=== PATIENT | male | born 1990 | race Caucasian/White ===

== ENCOUNTER 2017-06-17 16:39 | Emergency (ER) | payer SELFPAY ==
[~2017-06-17] VITALS: Ht 157.5 cm; Wt 71.0 kg
[2017-06-17 16:40] VITALS: BP 122/65; PULSE 100; RESP 20; TEMP 99.1; O2SAT 97
[2017-06-17 19:13] VITALS: BP 165/86; PULSE 61; RESP 18; O2SAT 100
--- NOTE | 2017-06-17 19:36 | PD ---
HPI Chief Complaint: Abdominal Pain Time Seen by Provider: 19:26 Travel History International Travel<30 days: No Contact w/Intl Traveler<30days: No Traveled to known affect area: No History of Present Illness HPI 26-year-old black male presents from her department by EMS with complaints of upper abdominal pain since this afternoon around noon. 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 He had a bolus cereal before going to bed. He states he had woken up around noon with pain in his upper abdomen more on the right side. He denies any nausea vomiting. No fever chills. No urinary symptoms. He states the pain is worse when he takes a deep breath. There is no alleviating factors. He states the pain is a 6/10. Its dull but can be sharp at times. Denies any other medical complaints. PFSH Past Medical History Medical History: Denies Significant Hx Diabetes: No Patient Takes Glucophage: No Diminished Hearing: No Immunizations Current: Yes Tetanus Vaccination: < 5 Years Influenza Vaccination: Yes Past Surgical History Surgical History: No Previous Surgery Social History Alcohol Use: No Tobacco Use: No Substance Use: No Allergies-Medications (Allergen,Severity, Reaction): Coded Allergies: No Known Allergies (Unverified , 06/17/17) Reported Meds & Prescriptions Reported Meds & Active Scripts Active Levsin-SL (Hyoscyamine Sulfate) 0.125 Mg Subl 0.125 Mg SL Q4H Zofran Odt (Ondansetron Odt) 4 Mg Tab 4 Mg SL ONCE Review of Systems Except as stated in HPI: all other systems reviewed are Neg General / Constitutional: No: Fever Eyes: No: Visual changes HENT: No: Headaches Cardiovascular: No: Chest Pain or Discomfort Respiratory: No: Shortness of Breath Gastrointestinal: Positive: Abdominal Pain, No: Nausea, Vomiting, Diarrhea Genitourinary: No: Dysuria, Nocturia Musculoskeletal: No: Pain Skin: No Rash Neurologic: No: Weakness Psychiatric: No: Depression Endocrine: No: Polydipsia Hematologic/Lymphatic: No: Easy Bruising Physical Exam Narrative GENERAL: Well-developed, well-nourished in no acute distress. Nontoxic appearing. HEAD: Normocephalic, atraumatic. EYES: Pupils equal round and reactive. Extraocular motions intact. No scleral icterus. No injection or drainage. ENT: TMs clear without erythema. The external auditory canals clear. Nose: clear . Posterior pharynx is pink and moist. No tonsillar edema or exudate. Uvula midline. Airway patent. NECK: Trachea midline.Supple, nontender, moves head freely. No central bony tenderness or spasm. CARDIOVASCULAR: Regular rate and rhythm without murmurs, gallops, or rubs. RESPIRATORY: Clear to auscultation. Breath sounds equal bilaterally. No wheezes , rales, or rhonchi. GASTROINTESTINAL: Abdomen soft, minimal tenderness to the right upper quadrant with deep palpation, nondistended. No hepato-splenomegaly, or palpable masses. No guarding. No rebound. No Monroy sign. EXTREMITIES: No clubbing, cyanosis, or edema. No joint tenderness, effusion, or edema noted. BACK: Nontender without deformity or crepitance. No flank tenderness. Data Data Last Documented VS Vital Signs Date Time Temp Pulse Resp B/P (MAP) Pulse Ox O2 Delivery O2 Flow Rate FiO2 06/17/17 19:13 61 18 165/86 (112) 100 Room Air 06/17/17 16:40 99.1 Orders Orders Complete Blood Count With Diff (06/17/17 19:31) Comprehensive Metabolic Panel (06/17/17 19:31) C-Reactive Protein (Crp) (06/17/17 19:31) Lipase (06/17/17 19:31) Urinalysis - C+S If Indicated (06/17/17 19:31) Iv Access Insert/Monitor (06/17/17 19:31) Sodium Chlor 0.9% 1000 Ml Inj (Ns 1000 M (06/17/17 19:45) Metoclopramide Inj (Reglan Inj) (06/17/17 19:45) Diphenhydramine Inj (Benadryl Inj) (06/17/17 19:45) Hyoscyamine (Levsin) (06/17/17 19:45) Ed Discharge Order (06/17/17 21:09) Labs Laboratory Tests Test 06/17/17 19:35 06/17/17 20:35 White Blood Count 8.1 TH/MM3 Red Blood Count 4.39 MIL/MM3 Hemoglobin 13.0 GM/DL Hematocrit 38.4 % Mean Corpuscular Volume 87.3 FL Mean Corpuscular Hemoglobin 29.5 PG Mean Corpuscular Hemoglobin Concent 33.8 % Red Cell Distribution Width 13.6 % Platelet Count 283 TH/MM3 Mean Platelet Volume 8.1 FL Neutrophils (%) (Auto) 82.1 % Lymphocytes (%) (Auto) 11.4 % Monocytes (%) (Auto) 6.0 % Eosinophils (%) (Auto) 0.2 % Basophils (%) (Auto) 0.3 % Neutrophils # (Auto) 6.7 TH/MM3 Lymphocytes # (Auto) 0.9 TH/MM3 Monocytes # (Auto) 0.5 TH/MM3 Eosinophils # (Auto) 0.0 TH/MM3 Basophils # (Auto) 0.0 TH/MM3 CBC Comment DIFF FINAL Differential Comment Blood Urea Nitrogen 6 MG/DL Creatinine 0.80 MG/DL Random Glucose 97 MG/DL Total Protein 7.5 GM/DL Albumin 4.0 GM/DL Calcium Level 8.7 MG/DL Alkaline Phosphatase 47 U/L Aspartate Amino Transf (AST/SGOT) 18 U/L Alanine Aminotransferase (ALT/SGPT) 26 U/L Total Bilirubin 0.6 MG/DL Sodium Level 138 MEQ/L Potassium Level 3.8 MEQ/L Chloride Level 105 MEQ/L Carbon Dioxide Level 28.3 MEQ/L Anion Gap 5 MEQ/L Estimat Glomerular Filtration Rate 116 ML/MIN C-Reactive Protein LESS THAN 0.29 MG/DL Lipase 88 U/L Urine Color LIGHT-YELLOW Urine Turbidity CLEAR Urine pH 6.5 Urine Specific [place] 1.007 Urine Protein NEG mg/dL Urine Glucose (UA) NEG mg/dL Urine Ketones NEG mg/dL Urine Occult Blood NEG Urine Nitrite NEG Urine Bilirubin NEG Urine Urobilinogen LESS THAN 2.0 MG/DL Urine Leukocyte Esterase NEG Urine WBC LESS THAN 1 /hpf Urine Squamous Epithelial Cells <1 /hpf Microscopic Urinalysis Comment CULT NOT INDICATED MDM Medical Decision Making Medical Screen Exam Complete: Yes Emergency Medical Condition: Yes Medical Record Reviewed: Yes Interpretation(s) Laboratory Tests Test 06/17/17 19:35 06/17/17 20:35 White Blood Count 8.1 TH/MM3 Red Blood Count 4.39 MIL/MM3 Hemoglobin 13.0 GM/DL Hematocrit 38.4 % Mean Corpuscular Volume 87.3 FL Mean Corpuscular Hemoglobin 29.5 PG Mean Corpuscular Hemoglobin Concent 33.8 % Red Cell Distribution Width 13.6 % Platelet Count 283 TH/MM3 Mean Platelet Volume 8.1 FL Neutrophils (%) (Auto) 82.1 % Lymphocytes (%) (Auto) 11.4 % Monocytes (%) (Auto) 6.0 % Eosinophils (%) (Auto) 0.2 % Basophils (%) (Auto) 0.3 % Neutrophils # (Auto) 6.7 TH/MM3 Lymphocytes # (Auto) 0.9 TH/MM3 Monocytes # (Auto) 0.5 TH/MM3 Eosinophils # (Auto) 0.0 TH/MM3 Basophils # (Auto) 0.0 TH/MM3 CBC Comment DIFF FINAL Differential Comment Blood Urea Nitrogen 6 MG/DL Creatinine 0.80 MG/DL Random Glucose 97 MG/DL Total Protein 7.5 GM/DL Albumin 4.0 GM/DL Calcium Level 8.7 MG/DL Alkaline Phosphatase 47 U/L Aspartate Amino Transf (AST/SGOT) 18 U/L Alanine Aminotransferase (ALT/SGPT) 26 U/L Total Bilirubin 0.6 MG/DL Sodium Level 138 MEQ/L Potassium Level 3.8 MEQ/L Chloride Level 105 MEQ/L Carbon Dioxide Level 28.3 MEQ/L Anion Gap 5 MEQ/L Estimat Glomerular Filtration Rate 116 ML/MIN C-Reactive Protein LESS THAN 0.29 MG/DL Lipase 88 U/L Urine Color LIGHT-YELLOW Urine Turbidity CLEAR Urine pH 6.5 Urine Specific [place] 1.007 Urine Protein NEG mg/dL Urine Glucose (UA) NEG mg/dL Urine Ketones NEG mg/dL Urine Occult Blood NEG Urine Nitrite NEG Urine Bilirubin NEG Urine Urobilinogen LESS THAN 2.0 MG/DL Urine Leukocyte Esterase NEG Urine WBC LESS THAN 1 /hpf Urine Squamous Epithelial Cells <1 /hpf Microscopic Urinalysis Comment CULT NOT INDICATED Differential Diagnosis MDM: High Differential diagnoses: Ruptured viscous, acute pancreatitis, diverticulitis, hepatitis, colitis, ischemic bowel, bowel instruction, nonspecific abdominal pain, gastroparesis, electrolyte abnormality, cholelithiasis, dehydration, drug- seeking, malingering Narrative Course IV access is obtained. Patient given a liter bolus of normal slightly, Benadryl 50 mg IV, Reglan 10 mg IV, 2 Levsin sublingual. Routine laboratory tests for analysis. Patient has resolution of his pain. He is taking by mouth without problems. The patient is medically stable for discharge his laboratory evaluations are unremarkable. Repeat exam is normal. This is abdominal pain-resolved Diagnosis Primary Impression: abdominal pain-resolved Patient Instructions: General Instructions Additional Instructions: Rest. Increase fluids. Zofran for nausea. Levsin for abdominal cramping. Follow-up with a primary care doctor in the next 2-3 days or return to the ER if any worsening or problems develop. Med/Other Pt SpecificInfo: Prescription(s) given Scripts Hyoscyamine Odt (Levsin-SL) 0.125 Mg Subl 0.125 MG SL Q4H for Gastrointestinal disorders, #10 TAB.SL 0 Refills Prov: Christiano Doyle MD 06/17/17 Ondansetron Odt (Zofran Odt) 4 Mg Tab 4 MG SL ONCE for Nausea/Vomiting, #3 TAB 0 Refills Prov: Christiano Doyle MD 06/17/17 Disposition: 01 DISCHARGE HOME Condition: Stable Ric Sousa Jun 17, 2017 19:36
[2017-06-17] MEDS ORDERED: HYOSCYAMINE 0.125 MG TAB PO ONE (19:45)
[2017-06-17] MEDS ORDERED: METOCLOPRAMIDE HCL 10 MG/2 ML VIAL IV PUSH ONE (19:45)
[2017-06-17] MEDS ORDERED: diphenhydrAMINE HCL 50 MG/ML VIAL IV PUSH ONE (19:45)
[2017-06-17] MEDS ORDERED: SODIUM CHLOR 0.9% 1000 ML INJ 1,000 ML IV ONE (19:45)
[2017-06-17 20:24] LABS: ANION GAP 5 MEQ/L (5-15); AST (GOT) 18 U/L (15-37); BICARBONATE 28.3 MEQ/L (21.0-32.0); BLOOD UREA NITROGEN 6 MG/DL (7-18); CHLORIDE 105 MEQ/L (98-107); GLOMERULAR FILTRATION RATE 116 ML/MIN (>89); POTASSIUM 3.8 MEQ/L (3.5-5.1); SODIUM (NA) 138 MEQ/L (136-145)
[2017-06-17 20:25] LABS: ALT (GPT) 26 U/L (12-78)
[2017-06-17 20:27] LABS: ALKALINE PHOSPHATASE 47 U/L (45-117); TOTAL BILIRUBIN ADULT 0.6 MG/DL (0.2-1.0)
[2017-06-17 20:32] LABS: AUTOMATED NEUTROPHIL # 6.7 TH/MM3 (1.8-7.7); BASOPHIL % 0.3 % (0.0-2.0); EOSINOPHIL % 0.2 % (0.0-4.0); HEMATOCRIT 38.4 % (39.0-51.0); HEMO FLAGS DIFF FINAL; LYMPH % 11.4 % (9.0-44.0); LYMPHOCYTE # 0.9 TH/MM3 (1.0-4.8); MEAN CELL VOLUME 87.3 FL (80.0-100.0); MEAN CORPUSCULAR HEMOGLOBIN 29.5 PG (27.0-34.0); MEAN CORPUSCULAR HGB CONC 33.8 % (32.0-36.0); NEUT % 82.1 % (16.0-70.0); PLATELET COUNT 283 TH/MM3 (150-450); RED BLOOD COUNT 4.39 MIL/MM3 (4.50-5.90); RED CELL DISTRIBUTION WIDTH 13.6 % (11.6-17.2); WHITE BLOOD COUNT 8.1 TH/MM3 (4.0-11.0)
[2017-06-17 21:09] LABS: BLOOD, URINE NEG (NEG); COMMENT (UR) CULT NOT INDICATED; CULTURE IF INDICATED CULT NOT INDICATED; GLUCOSE,URINE NEG (NEG); KETONE, URINE NEG (NEG); NITRITE,URINE NEG (NEG); PH, URINE 6.5 (5.0-8.5); SQUAMOUS EPITHELIAL CELL URINE <1 /hpf (0-5); URINE COLOR LIGHT-YELLOW (YELLW/STRAW)
[2017-06-17] MEDS ORDERED: ZOFR4TAB3 SL (21:18)
[2017-06-17] MEDS ORDERED: LEVS0.124 SL (21:18)
== END 2017-06-17 21:41 | disposition home or self-care (01) ==
LOC: NEPD 16:39
DX: R10.10 Upper abdominal pain, unspecified (principal)
CPT/HCPCS: 80053; 81001; 83690; 85025; 86140; 96361; 96374; 96375; 99284; J1200; J2765; J7030

== ENCOUNTER 2017-08-19 00:42 | Emergency (ER) | payer SELFPAY ==
[~2017-08-19] VITALS: Ht 185.4 cm; Wt 120.0 kg
[~2017-08-19 00:42] MED LIST: LEVS0.124 SL; ZOFR4TAB3 SL
[2017-08-19 00:45] VITALS: BP 162/89; PULSE 63; RESP 20; TEMP 97.6; O2SAT 100
[2017-08-19 02:47] VITALS: BP 154/90; PULSE 61; RESP 18; O2SAT 100
[2017-08-19 03:25] LABS: BILIRUBIN, URINE NEG (NEG); BLOOD, URINE NEG (NEG); GLUCOSE,URINE NEG (NEG); KETONE, URINE NEG (NEG); MUCUS URINE FEW /lpf (OCC); NITRITE,URINE NEG (NEG); SQUAMOUS EPITHELIAL CELL URINE <1 /hpf (0-5); TRANSITIONAL EPI CELLS, URINE <1 /hpf; URINE COLOR YELLOW (YELLW/STRAW); URINE LEUKOCYTE ESTERASE NEG (NEG)
[2017-08-19] MEDS ORDERED: KETOROLAC TROMETHAMINE 60 MG/2 ML (IM) VIAL IM ONE (04:00)
--- NOTE | 2017-08-19 05:22 | PD ---
HPI Chief Complaint: Abdominal Pain Time Seen by Provider: 01:44 Travel History International Travel<30 days: No Contact w/Intl Traveler<30days: No Traveled to known affect area: No History of Present Illness HPI Patient 26-year-old male comes to the ER complaining of right upper lateral rib area pain however he is very vague and localizing it patient is a poor historian and seems possibly intoxicated with alcohol or other substance . Unable to give an specific or localized report of pain ,,,patient falls asleep on the stretcher .. When I exam on intiial eval to decide work up need pt sleepy and is in no apparent distress, no resp distress no abdo distress no severe pain. sleeps for entire ED stay. Awake to voice without pain complaint PFSH Past Medical History Medical History: Denies Significant Hx Diabetes: No Diminished Hearing: No Immunizations Current: Yes Tetanus Vaccination: < 5 Years Influenza Vaccination: No Past Surgical History Surgical History: No Previous Surgery Social History Alcohol Use: No Tobacco Use: No Substance Use: No Allergies-Medications (Allergen,Severity, Reaction): Coded Allergies: No Known Allergies (Unverified , 06/17/17) Reported Meds & Prescriptions Reported Meds & Active Scripts Active Levsin-SL (Hyoscyamine Sulfate) 0.125 Mg Subl 0.125 Mg SL Q4H Zofran Odt (Ondansetron Odt) 4 Mg Tab 4 Mg SL ONCE Review of Systems Except as stated in HPI: all other systems reviewed are Neg Gastrointestinal: Positive: Abdominal Pain Musculoskeletal: Positive: Myalgias Physical Exam Narrative GENERAL: Nontoxic-appearing awake but answering only in one word answers and seems slightly bizarre SKIN: Warm and dry. HEAD: Atraumatic. Normocephalic. EYES: Pupils equal and round. No scleral icterus. No injection or drainage. ENT: No nasal bleeding or discharge. Mucous membranes pink and moist. NECK: Trachea midline. No JVD. CARDIOVASCULAR: Regular rate and rhythm. RESPIRATORY: No accessory muscle use. Clear to auscultation. Breath sounds equal bilaterally. GASTROINTESTINAL: Abdomen soft, non-tender, nondistended. Hepatic and splenic margins not palpable. DEEP palpation of right upper and lateral and CVA and lower right elicit no pain reaction and pt drifts off to sleep again MUSCULOSKELETAL: Extremities without clubbing, cyanosis, or edema. No obvious deformities. NEUROLOGICAL: Awake and alert. No obvious cranial nerve deficits. Motor grossly within normal limits. Five out of 5 muscle strength in the arms and legs. Normal speech. PSYCHIATRIC: Slightly bizarre affect possibly intoxicated sleepy arousable Data Data Last Documented VS Orders Orders Urinalysis - C+S If Indicated (08/19/17 03:02) Ketorolac Inj (Toradol Inj) (08/19/17 04:00) Ed Discharge Order (08/19/17 06:02) Labs Laboratory Tests Test 08/19/17 03:00 Urine Color YELLOW Urine Turbidity CLEAR Urine pH 8.0 Urine Specific [place] 1.013 Urine Protein NEG mg/dL Urine Glucose (UA) NEG mg/dL Urine Ketones NEG mg/dL Urine Occult Blood NEG Urine Nitrite NEG Urine Bilirubin NEG Urine Urobilinogen LESS THAN 2.0 MG/DL Urine Leukocyte Esterase NEG Urine RBC 1 /hpf Urine Squamous Epithelial Cells <1 /hpf Urine Transitional Epithelial Cells <1 /hpf Urine Mucus FEW /lpf Microscopic Urinalysis Comment CULT NOT INDICATED MDM Medical Decision Making Medical Screen Exam Complete: Yes Emergency Medical Condition: Yes Differential Diagnosis Differential diagnosis gastritis versus pancreatitis versus cholecystitis versus abdomen and OS versus costochondritis Narrative Course Patient has no clinical exam findings that would suggest that he is it all in need of further workup I did a UA there is no blood think that there is a kidney stone causing any of this pain he is slept comfortably I gave him 60 IM Toradol he is safe for discharge there is no indication of sepsis or pain or any intra-abdominal pathology that would need further workup at this timeDifferential diagnosis gastritis versus pancreatitis versus cholecystitis versus abdomen and OS versus costochondritis Diagnosis Primary Impression: Abdominal wall pain Disposition: 01 DISCHARGE HOME Condition: Roderick Velázquez MD Aug 19, 2017 05:22
[2017-08-19 06:02] VITALS: BP 113/56; RESP 16; O2SAT 99
== END 2017-08-19 06:32 | disposition home or self-care (01) ==
LOC: NEPC 00:42
DX: R10.11 Right upper quadrant pain (principal); M79.1 Myalgia
CPT/HCPCS: 81001; 96372; 99283; J1885